=== PATIENT | female | born 1985 | race Caucasian/White ===

== ENCOUNTER → 2018-04-07 | Outpatient (CLI) | payer OTHER ==
[~2018-04-07] MED LIST: AMOX500 PO; Bactroban22 GM TOP; CIPR250 PO; CIPR500 PO; GABA300 PO; HYDACE5 PO; HYDMOR4 PO; IBUP600 PO; IBUP800 PO; MULVITMINE PO; NAPR500 PO; NITR100CA PO; Naprosyn500 MG PO; OXYACE5T PO; PENVK500 PO; PHENA200 PO; Prednisone10 MG PO; RXHYDACE PO; RXHYDMOR2 PO; RXPROM25 PO; SULTRIDS PO; TRAM50 PO; Zithromax250 MG PO
== END ==
LOC: LAB SHORT 15:50 → LAB SRC 15:50 → LAB SHORT 04-08 10:15
DX: F11.20 Opioid dependence, uncomplicated (principal)
CPT/HCPCS: G0480

== ENCOUNTER → 2018-04-15 | Outpatient (CLI) | payer OTHER | LOC: LAB 14:15 → LAB SHORT 14:15 | DX: F11.20 Opioid dependence, uncomplicated (principal) | CPT/HCPCS: G0480 ==